=== PATIENT | male | born 1955 | race Caucasian/White ===

== ENCOUNTER 2016-09-18 10:10 | Emergency (ER) | payer MEDICARE, OTHER ==
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
[2016-09-18] MEDS ORDERED: Albuterol-Ipratrop 3 mg / 0.5 (3 ml) UD ONE (10:49)
[2016-09-18 11:38] VITALS: RESP 18
[2016-09-18 11:55] VITALS: BP 102/78; PULSE 77; TEMP 97.9
[2016-09-18 12:05] VITALS: O2SAT 97
--- NOTE | 2016-09-19 18:31 | CARD ---
APPROVED REPORT EKG Measurement Heart [id number] <Conclusion> Normal sinus rhythm Right bundle branch block Abnormal ECG
== END 2016-09-18 12:11 | disposition home or self-care (01) ==
LOC: C.ER 10:10
DX: T59.811A Toxic effect of smoke, accidental (unintentional), initial encounter (principal); J70.5 Respiratory conditions due to smoke inhalation; R06.2 Wheezing; Y92.039 Unspecified place in apartment as the place of occurrence of the external cause; Z72.0 Tobacco use